=== PATIENT | female | born 1990 | race Caucasian/White ===

== ENCOUNTER 2016-10-21 07:31 | Inpatient (IN) | payer BC, OTHER ==
[~2016-10-21] VITALS: Ht 160 cm; Wt 44.9 kg
[2016-10-21 13:00] VITALS: BP 115/80
[2016-10-21] MEDS ORDERED: INSU3INS6 SUBCUT (13:02)
[2016-10-21] MEDS ORDERED: [UNRECOGNIZED DRUG - OTHER] (13:05)
[2016-10-21 13:12] LABS: *URINE HCG, QUAL NEGATIVE (NEGATIVE)
[2016-10-21] MEDS ORDERED: ONDANSETRON ODT 4 MG TAB.RAPDIS SL PRN (13:15)
[2016-10-21] MEDS ORDERED: BUPRENORPHINE HCL 2 MG TAB.SUBL SL PRN (13:15)
[2016-10-21] MEDS ORDERED: IBUPROFEN 600 MG TABLET PO PRN (13:15)
[2016-10-21] MEDS ORDERED: ONDANSETRON 4 MG/2 ML VIAL IM PRN (13:15)
[2016-10-21] MEDS ORDERED: MAG HYDROX/AL HYDROX/SIMETH 30 ML LIQUID UDC PO PRN (13:15)
[2016-10-21] MEDS ORDERED: DEXTROSE 50% 50 ML DISP.SYRIN IV PRN (13:15)
[2016-10-21] MEDS ORDERED: ACETAMINOPHEN 325 MG TABLET PO PRN (13:15)
[2016-10-21] MEDS ORDERED: HYDROXYZINE PAMOATE 25 MG CAPSULE PO PRN (13:15)
[2016-10-21] MEDS ORDERED: CLONIDINE HCL 0.1 MG TABLET PO PRN (13:15)
[2016-10-21] MEDS ORDERED: MAGNESIUM HYDROXIDE 30 ML LIQUID UDC PO PRN (13:15)
[2016-10-21] MEDS ORDERED: METHOCARBAMOL 750 MG TABLET PO PRN (13:15)
[2016-10-21] MEDS ORDERED: MIRALAX 17 GM POWD.PACK PO PRN (13:15)
[2016-10-21] MEDS ORDERED: diphenhydrAMINE 50 MG CAPSULE PO PRN (13:15)
[2016-10-21] MEDS ORDERED: LOPERAMIDE HCL 2 MG CAPSULE PO PRN ×2 (13:15)
[2016-10-21] MEDS ORDERED: DICYCLOMINE HCL 20 MG TABLET PO PRN (13:15)
[2016-10-21] MEDS ORDERED: HYDR-3028 PO (13:53)
[2016-10-21] MEDS ORDERED: AMIT50TA17 PO (13:53)
[2016-10-21 13:55] LABS: *AMPHETAMINE, URINE NEGATIVE (NEGATIVE); *BARBITURATE, URINE NEGATIVE (NEGATIVE); *CANNABINOID, URINE NEGATIVE (NEGATIVE); *COCCAINE, URINE NEGATIVE (NEGATIVE); *OPIATE, URINE POSITIVE (NEGATIVE); *PHENCYCLIDINE SCREEN,URINE NEGATIVE (NEGATIVE)
[2016-10-21] MEDS: BLOOD SUGAR DIAGNOSTIC 1 EACH STRIP VI SCH ×2 (16:43→21:00)
[2016-10-21] MEDS: INSULIN REGULAR, HUMAN 300 UNIT/3 ML VIAL SQ PRN (16:48)
[2016-10-21 17:42] VITALS: BP 105/57
[2016-10-21 20:00] VITALS: BP 123/65
[2016-10-21] MEDS ORDERED: INSULIN DETEMIR 300 UNIT/3 ML CARTRIDGE SQ SCH (21:00)
[2016-10-21] MEDS: AMITRIPTYLINE HCL 50 MG TABLET PO SCH (21:00)
[2016-10-21] MEDS ORDERED: INSULIN GLARGINE,HUM 300 UNITS/3 ML CARTRIDGE SQ SCH (21:00)
[2016-10-21] MEDS: INSULIN REGULAR, HUMAN 300 UNITS/3 ML VIAL SQ PRN (22:13)
[2016-10-22] VITALS: BP 111/60
[2016-10-22 04:00] VITALS: BP 103/52
[2016-10-22] MEDS: BLOOD SUGAR DIAGNOSTIC 1 EACH STRIP VI SCH ×4 (07:30→20:12)
[2016-10-22 08:00] VITALS: BP 113/68
[2016-10-22] MEDS ORDERED: TUBERCULIN,PURIF.PROT.DERIV. 5 TU/0.1 ML TEST ID ONE ×2 (09:00→15:00)
[2016-10-22] MEDS: BUPRENORPHINE HCL 2 MG TAB.SUBL SL SCH ×3 (09:00→17:00)
[2016-10-22] MEDS: MULTIVITAMINS,THERAPEUTIC TABLET PO SCH (09:00)
[2016-10-22] MEDS ORDERED: INSULIN GLARGINE,HUM 300 UNITS/3 ML CARTRIDGE SQ SCH (09:00)
[2016-10-22] MEDS ORDERED: INSULIN DETEMIR 300 UNIT/3 ML CARTRIDGE SQ SCH (09:00)
[2016-10-22] MEDS: INSULIN REGULAR, HUMAN 300 UNIT/3 ML VIAL SQ PRN ×2 (11:54→16:43)
[2016-10-22 12:00] VITALS: BP 109/67
[2016-10-22 16:00] VITALS: BP 118/76
[2016-10-22 16:53] LABS: BASOPHILS % (AUTO) 0.2 % (0.0-2.0); EOSINOPHILS % (AUTO) 0.4 % (0.0-7.0); HEMATOCRIT 42.5 % (31.2-41.9); HEMOGLOBIN 13.9 g/dL (10.9-14.3); LYMPHOCYTES # (AUTO) 1.9 K/uL (20.0-40.0); LYMPHOCYTES % (AUTO) 21.1 % (20.5-51.5); MEAN CORPUSCULAR HEMOGLOBIN 25.4 uug (24.7-32.8); MEAN CORPUSCULAR HGB CONC 33 g/dL (32.3-35.6); MEAN CORPUSCULAR VOLUME 77.7 fL (75.5-95.3); MONOCYTES # (AUTO) 0.3 K/uL (2.0-10.0); NEUTROPHILS # (AUTO) 6.7 K/uL (1.8-8.9); NEUTROPHILS % (AUTO) 75.3 % (38.5-71.5); PLATELET COUNT (AUTO) 459 K/uL (179-408); RED BLOOD CELL COUNT(AUTO) 5.47 MIL/uL (3.63-4.92); RED CELL DISTRIBUTION WIDTH 13.8 % (12.3-17.7); WHITE BLOOD COUNT (AUTO) 8.9 K/uL (3.8-11.8)
[2016-10-22 16:58] LABS: ALANINE AMINOTRANSFERASE 21 U/L (14-59); ALBUMIN 3.4 g/dL (3.4-5.0); ALKALINE PHOSPHATASE 98 U/L (50-136); AMYLASE 20 U/L (25-115); ASPARTATE AMINOTRANSFERASE 13 U/L (15-37); BILIRUBIN,TOTAL 0.3 mg/dL (0.2-1.0); CALCIUM 9.2 mg/dL (8.5-10.1); CARBON DIOXIDE 29 mmol/L (21-32); CHLORIDE 98 mmol/L (98-107); CREATININE 1.2 mg/dL (0.6-1.3); ETHANOL < 3 MG/DL (0-0); GFR 54 mL/min (>60); LIPASE 71 U/L (73-393); MAGNESIUM 1.8 mg/dL (1.8-2.4); POTASSIUM 4.9 mmol/L (3.5-5.1); SODIUM SERUM 135 mmol/L (136-145); TOTAL PROTEIN, SERUM 7.6 g/dL (6.4-8.2); UREA NITROGEN, BLOOD 17 mg/dL (7-18)
[2016-10-22 17:12] LABS: GLUCOSE 485 mg/dL (74-106)
[2016-10-22 17:20] LABS: THYROID STIMULATING HORMONE 0.823 mIU/mL (0.358-3.740)
[2016-10-22 17:48] LABS: HIV-1 p24 ANTIGEN NON REACTIVE (NONREACTIVE); HIV-1/2 ANTIBODY NON REACTIVE (NONREACTIVE)
[2016-10-22] MEDS ORDERED: LORAZEPAM 1 MG TABLET PO ONE (19:45)
[2016-10-22] MEDS ORDERED: BUPRENORPHINE HCL 2 MG TAB.SUBL SL ONE (19:45)
[2016-10-22 20:00] VITALS: BP 117/77
[2016-10-22] MEDS: INSULIN DETEMIR 300 UNIT/3 ML CARTRIDGE SQ SCH (20:13)
[2016-10-22] MEDS: INSULIN REGULAR, HUMAN 300 UNITS/3 ML VIAL SQ PRN (20:15)
[2016-10-22] MEDS: AMITRIPTYLINE HCL 50 MG TABLET PO SCH ×2 (21:00→23:49)
[2016-10-23] VITALS: BP 105/71
[2016-10-23 08:00] VITALS: BP 111/75
[2016-10-23] MEDS: BLOOD SUGAR DIAGNOSTIC 1 EACH STRIP VI SCH ×4 (08:48→21:05)
[2016-10-23] MEDS ORDERED: BUPRENORPHINE HCL 2 MG TAB.SUBL SL SCH ×2 (09:00→21:00)
[2016-10-23] MEDS: MULTIVITAMINS,THERAPEUTIC TABLET PO SCH (09:00)
[2016-10-23] MEDS: INSULIN DETEMIR 300 UNIT/3 ML CARTRIDGE SQ SCH (09:01)
[2016-10-23 12:00] VITALS: BP 111/78
[2016-10-23] MEDS ORDERED: BUPRENORPHINE HCL 2 MG TAB.SUBL SL ONE (12:45)
[2016-10-23 14:12] LABS: HCV AB <0.1 s/co ratio (0.0-0.9); HEPATITIS B CORE AB, IgM Negative (Negative); HEPATITIS B SURFACE AG Negative (Negative)
[2016-10-23 16:00] VITALS: BP 121/65
[2016-10-23] MEDS: INSULIN REGULAR, HUMAN 300 UNIT/3 ML VIAL SQ PRN (17:47)
[2016-10-23 20:00] VITALS: BP 106/74
[2016-10-23] MEDS: INSULIN REGULAR, HUMAN 300 UNITS/3 ML VIAL SQ PRN (20:07)
[2016-10-23] MEDS ORDERED: INSULIN DETEMIR 300 UNIT/3 ML CARTRIDGE SQ SCH (21:00)
[2016-10-24] MEDS ORDERED: INSULIN DETEMIR 300 UNIT/3 ML CARTRIDGE SQ SCH (09:00)
[2016-10-24] MEDS ORDERED: BUPRENORPHINE HCL 2 MG TAB.SUBL SL SCH ×3 (09:00→15:00)
[2016-10-25] MEDS ORDERED: BUPRENORPHINE HCL 2 MG TAB.SUBL SL SCH ×2 (09:00)
[2016-10-26] MEDS ORDERED: BUPRENORPHINE HCL 2 MG TAB.SUBL SL SCH (09:00)
== END 2016-10-23 21:37 | disposition left against medical advice (07) | DRG 894 ==
LOC: SRC 11:52
PROVIDERS: ADMIT Internal Medicine; ATTEND Internal Medicine
PROC: HZ2ZZZZ Detoxification Services for Substance Abuse Treatment (ICD-10-PCS; principal; 2016-10-21)
PROC: HZ31ZZZ Individual Counseling for Substance Abuse Treatment, Behavioral (ICD-10-PCS; 2016-10-23)
DX: F11.23 Opioid dependence with withdrawal (principal); Z59.0 Homelessness; G47.00 Insomnia, unspecified; F41.9 Anxiety disorder, unspecified; F32.9 Major depressive disorder, single episode, unspecified; E10.65 Type 1 diabetes mellitus with hyperglycemia; Z79.4 Long term (current) use of insulin; Z91.14 Patient's other noncompliance with medication regimen; Z91.11 Patient's noncompliance with dietary regimen; F17.210 Nicotine dependence, cigarettes, uncomplicated; Z59.1 Inadequate housing; R26.81 Unsteadiness on feet
CPT/HCPCS: 36415; 80307; 83690; 83735; 84443; 84703; 85025; 86580; 86592; 86705; 86803; 87340; 87806; G6040-TC; J1815; Q0162